=== PATIENT | female | born 1955 | race Two or more races ===

== ENCOUNTER 2022-04-11 08:00 | Day surgery (SDC) | payer OTHER ==
[~2022-04-11 08:00] MED LIST: ALPRAZOLAM ODT1 MG PO; GABAPENTIN300 M2 PO; OMEPRAZOLE-BIC1 EAC1 PO; PROGESTERONE200 MG PO; PROZAC20 MG PO; RESTORIL30 M1 PO; SIMVASTATIN10 MG PO
== END 2022-04-11 17:35 | disposition home or self-care (01) ==
LOC: CIR.AMB 08:00
PROVIDERS: ATTEND Obstetrics & Gynecology
DX: N95.0 Postmenopausal bleeding (principal); R93.89 Abnormal findings on diagnostic imaging of other specified body structures; N84.0 Polyp of corpus uteri; N84.1 Polyp of cervix uteri; N72 Inflammatory disease of cervix uteri; Z20.822 Contact with and (suspected) exposure to COVID-19